=== PATIENT | male | born 1970 | race Caucasian/White ===

== ENCOUNTER 2017-01-20 10:59 | Emergency (ER) | payer OTHER ==
[~2017-01-20] VITALS: Ht 185.4 cm; Wt 100.0 kg
[2017-01-20 11:00] VITALS: BP 123/86; PULSE 56; RESP 20; O2SAT 96
--- NOTE | 2017-01-20 11:10 | ED.REPORT ---
HPI-General Illness Date of Service Jan 20, 2017 ED Provider: Kaylin Kim MD Pt is a healthy 46 y/o male presenting to the ED via EMS c/o spinning-sensation dizziness onset prior to arrival. Yesterday, he noticed he was experiencing SOB which eventually resolved. This morning, while he was driving to work, he was feeling anxious and short of breath. During work his symptoms persisted and was standing at work and began to feel lightheaded causing him to need to sit down. He experienced increased shortness of breath (compared to yesterday) and anxiety during this episode. He denies diaphoresis, CP, fever, chills, N/V/D. He thought that he may be dehydrated so drank a few bottles of water and felt somewhat better but was still lightheaded while walking around. He then developed spinning-sensation dizziness which is sometimes exacerbated by movement prompting him to call EMS. He denies headache, vision changes, focal numbness/weakness. He has no medical history and takes no medications. There is no family history of early cardiac disease, in his father developed heart issues in his 70's. PCP: [facility] in [place] Nursing Notes Stated Complaint: VERTIGO Chief Complaint: General Complaint Nursing Notes Reviewed: Yes Allergies: Coded Allergies: No Known Allergies (Unverified , 01/20/17) General Time Seen by MD: 11:04 Chief Complaint Dizziness Hx Obtained From: Patient, EMS Arrived By: Ambulance Sudden in Onset?: No Onset Occurred: Just prior to arrival Symptom Duration: Since onset Severity: Current: No pain currently Severity: Maximum: No pain Recent Healthcare: No recent hospitalization Similar Sx Previous: No Past Medical History Past Medical History Notes: PCP: In [place] Past Medical History Denies Past Surgical History None reported Smoking History Never Smoker Social History Alcohol Use: "Social" Drug Use: Denies drug use Ambulatory Status Independent Review of Systems Full Review of Systems Constitutional: Denies: Chills, Fever Respiratory: Reports: Shortness of breath, Denies: Non-productive cough Cardiovascular: Denies: Chest pain, Edema GI: Reports: Nausea, Denies: Abdominal pain, Diarrhea, Vomiting Male: Denies Dysuria, Denies Flank pain Neurologic: Reports: Dizziness, Lightheaded, Spinning sensation, Syncope (near) , Denies: Change LOC, Confusion, Focal weakness, Headache, Numbness, Unable to speak, Vision change Psychiatric: Reports: Anxiety, Stress Complete sys rev & neg: except as marked. Physical Exam Vital Signs Vital Signs Date Time Temp Pulse Resp B/P Pulse Ox O2 Delivery O2 Flow Rate FiO2 01/20/17 16:00 66 20 132/93 97 Room Air 01/20/17 15:55 52 11 116/64 98 Room Air 01/20/17 15:17 61 12 120/78 98 Room Air 01/20/17 13:44 52 11 115/71 100 Nasal Cannula 2 01/20/17 11:00 36.2 56 20 123/86 96 Room Air Initial VS: Reviewed, Vital signs normal Head / Eyes: Atraumatic, Normocephalic, PERRL Neck: Supple, Full range of motion Respiratory: Breath sounds normal, Clear to auscultation, No respiratory distress Cardiovascular: Regular rate & rhythm, Heart sounds normal, Intact distal pulses Abdomen / GI: Soft, Non-tender, No guarding, No rebound, No distention Extremities: Vascular intact, Neuro intact, No swelling, No tenderness Skin: Warm, Dry, No cyanosis Psychiatric: Mood/affect normal, Behavior normal, Normal thought content General/Constitutional: Awake, Alert, Cooperative, Not toxic appearing Distress / Hydration: Positive: Distress mild Head / Eyes: Atraumatic, Normocephalic, PERRL, EOMI, No nystagmus ENT: Atraumatic, Airway patent, Mucous membranes moist, Pharynx NL, Tympanic membs NL Neurologic: Oriented X3, Speech NL, No motor deficits, No sensory deficits, CN II - XII intact, Cerebellar NL, Memory NL Michelle Hallpike negative Interpretation & Diagnostics Lab Results Interpretation Result Diagram: 01/20/17 1140 01/20/17 1140 Test 01/20/17 11:40 01/20/17 12:40 01/20/17 14:20 White Blood Count 5.8th/mm3 (3.8-10.1) Red Blood Count 5.41mil/mm3 (4.40-5.80) Hemoglobin 15.2g/dL (13.8-17.2) Hematocrit 44.0% (41.0-50.0) Mean Corpuscular Volume 81.3fL (81-100) Mean Corpuscular Hemoglobin 28.1pg (27.0-35.0) Mean Corpuscular Hemoglobin Concent 34.5% (32.0-37.0) Red Cell Distribution Width 12.9% (12.3-15.4) Platelet Count 283bil/L (150-400) Neutrophils (%) (Auto) 59.2% (40-74) Lymphocytes (%) (Auto) 25.6% (14-46) Monocytes (%) (Auto) 13.4% (4-12) Eosinophils (%) (Auto) 1.0% (0-5) Basophils (%) (Auto) 0.5% (0-3) D-Dimer < 0.5mg/L (<0.50) Sodium Level 139mEq/L (134-144) Potassium Level 4.1mEq/L (3.5-5.2) Chloride Level 102mEq/L (97-108) Carbon Dioxide Level 23mmol/L (18-29) Blood Urea Nitrogen 19mg/dL (6-24) Creatinine 0.99mg/dL (0.76-1.27) Estimat Glomerular Filtration Rate 87mL/min (>59) Glucose Level 92mg/dL (60-99) Calcium Level 9.1mg/dL (8.5-10.1) Magnesium Level 2.2mg/dL (1.6-2.6) Total Bilirubin 0.7mg/dL (0.0-1.2) Aspartate Amino Transf (AST/SGOT) 21U/L (0-50) Alanine Aminotransferase (ALT/SGPT) 24U/L (0-44) Alkaline Phosphatase 50U/L (25-150) Total Protein 7.0g/dL (6.4-8.4) Albumin 4.5g/dL (3.4-5.0) Hold Urine Received (Received) Troponin T < 0.010ug/L (0.0-0.011) ECG Interpretation ECG Interpretation: Sinus rhythm rate 63 Borderline prolonged CA interval Time: 11:33 Interpreted by: ED physician Normal ECG Interpretation: No acute ischemic changes X-Ray Chest Interpretation Chest Xray Interpretation: IMPRESSION: No acute cardiopulmonary disease. Dictated by: Keven Kramer M.D. on 01/20/2017 at 11:57 Approved by: Keven Kramer M.D. on 01/20/2017 at 11:57 View: Portable, 1 view Re-Eval/Medical Decision Med Decision/Clinical Course HEART score 1, 1.6% chance of major acute coronary event within 6 weeks. Low Risk. Time of Eval: 14:52 Re-Evaluation/Progress Note: Pt rechecked. Discussed lab results thus far. He is feeling somewhat better. Marbury Hallpike maneuvers are negative. Time of Eval: 16:15 Patient Status: Condition improved Re-Evaluation/Progress Note: BP laying 116/64 HR 52 standing 132/93 HR 66 with no evidence of orthostasis, feeling better. No evidence of acute coronary syndrome, pulmonary embolism, acute infection, benign positional vertigo, acute stroke, or other acute neurologic findings. Counseled Regarding: Diagnosis, Lab results, Need for follow-up, When/why to return to ED Discharge & Departure Primary Impression: Near syncope Additional Impression: Exertional dyspnea Disposition: Home Discharge Condition All VS Reviewed: Yes Condition: Stable Additional Instructions: No dangerous cause for your symptoms was discovered. Your labs, x-ray, and EKG were all normal. I do not have a good explanation for your dizziness today. I have included a copy of your ER note, with lab tests, to share the with your primary care physician. Follow-up with your primary care doctor within the week to further investigate today's symptoms. Outpatient treatment is appropriate at this time. Return to the emergency department for increased shortness of breath, severe chest pain, increased dizziness, or for other concerning symptoms. Thank you for coming in today, I am glad I did not find anything life threatening Scribe Attestation Portions of this note were transcribed by Tarik Don. I, Dr. Kim personally performed the history, physical exam and medical decision-making; I reviewed and confirmed the accuracy of the information in the transcribed note. Signed by Teresa Farah, 01/20/17 - 1130 Kaylin Kim MD Jan 20, 2017 11:10 ATRIK DON Jan 20, 2017 11:22
[2017-01-20] MEDS ORDERED: 0.9% Sodium Chloride 1,000 ML IV ONE (11:18)
[2017-01-20 11:55] LABS: BASOPHILS % (AUTO) 0.5 % (0-3); MONOCYTES % (AUTO) 13.4 % (4-12); Mean Corpuscular Hemoglobin 28.1 pg (27.0-35.0); Mean Corpuscular Volume 81.3 fL (81-100); NEUTROPHILS % (AUTO) 59.2 % (40-74); Platelet Count 283 bil/L (150-400)
--- NOTE | 2017-01-20 11:58 | DRSVH ---
PROCEDURE: X-RAY CHEST ONE VIEW, PORTABLE ([id number]) INDICATIONS: DYSPNEA TECHNIQUE: One view of the chest was acquired. COMPARISON: None. FINDINGS: Surgical changes and devices: None. Lungs and pleura: No pleural effusions or pneumothorax. Lungs are clear. Mediastinum: Mediastinal contours appear normal. Heart size is normal. Bones and chest wall: No suspicious bony lesions. Overlying soft tissues appear unremarkable. IMPRESSION: No acute cardiopulmonary disease. Dictated by: Keven Kramer M.D. on 01/20/2017 at 11:57 Approved by: Keven Kramer M.D. on 01/20/2017 at 11:57
[2017-01-20 12:24] LABS: TROPONIN T < 0.010 ug/L (0.0-0.011)
[2017-01-20 12:27] LABS: Magnesium 2.2 mg/dL (1.6-2.6)
[2017-01-20 13:44] VITALS: BP 115/71; PULSE 52; RESP 11; O2SAT 100
[2017-01-20 15:17] VITALS: BP 120/78; PULSE 61; RESP 12; O2SAT 98
[2017-01-20 15:55] VITALS: BP 116/64; PULSE 52; RESP 11; O2SAT 98
[2017-01-20 16:00] VITALS: BP 132/93; PULSE 66; RESP 20; O2SAT 97
[2017-01-20 16:35] VITALS: BP 111/71; PULSE 59; RESP 10; O2SAT 97
== END 2017-01-20 16:30 | disposition home or self-care (01) ==
LOC: EDBD 10:59 → SED 10:59
DX: R55 Syncope and collapse (principal); R06.09 Other forms of dyspnea
CPT/HCPCS: 36415; 71010; 80053; 83735; 84484; 85025; 85379; 93005; 96360; 99285; J7030